=== PATIENT | female | born 1960 | race Caucasian/White ===

== ENCOUNTER 2016-12-10 10:27 | Emergency (ER) | payer OTHER ==
[2016-12-10 10:28] VITALS: BMI 21.7
[2016-12-10 10:34] VITALS: BP 115/68; PULSE 94; RESP 18; TEMP 98; O2SAT 98
--- NOTE | 2016-12-10 10:59 | C.PDOC ---
History Of Present Illness 55 y/o female presents to the ED complaining of bilateral ear pressure sensation for the past 3 days. She also states she has a history of ringing in her ears, ongoing for several years, which is not present currently. She denies fever, sore throat, cough, runny nose, or discharge from ears. Time Seen by Provider: 12/10/16 10:39 Chief Complaint (Nursing): ENT Problem History Per: Patient History/Exam Limitations: None Onset/Duration Of Symptoms: Days (x3) Current Symptoms Are (Timing): Still Present Severity: Mild Past Medical History Reviewed: Historical Data, Nursing Documentation, Vital Signs Vital Signs: Last Vital Signs Temp 98.0 F 12/10/16 10:33 Pulse 94 H 12/10/16 10:33 Resp 18 12/10/16 10:33 BP 115/68 12/10/16 10:33 Pulse Ox 98 12/10/16 11:56 - Medical History PMH: Gastritis, Hyperlipidemia Surgical History: Cholecystectomy - [facility] INJECT/INFUSE NEC (06/24/06) Family History: States: No Known Family Hx - Social History Hx Tobacco Use: No Hx Alcohol Use: No Hx Substance Use: No - Immunization History Hx Tetanus Toxoid Vaccination: No Hx Influenza Vaccination: No Hx Pneumococcal Vaccination: No Review Of Systems Except As Marked, All Systems Reviewed And Found Negative. Constitutional: Negative for: Fever, Chills ENT: Positive for: Other (Sensation of ear pressure, bilateral). Negative for: Ear Discharge, Nose Congestion, Throat Pain Cardiovascular: Negative for: Chest Pain Respiratory: Negative for: Cough, Shortness of Breath Physical Exam - Physical Exam Appears: Well, Non-toxic, No Acute Distress Skin: Normal Color, Warm, Dry, No Rash Eye(s): bilateral: Normal Inspection Ear(s): Bilateral: Other (TMs appear mildly bulging bilaterally, with clear fluid behind TM . No erythema or discharge. No swelling of ear cannal.) Nose: Normal Oral Mucosa: Moist Throat: Normal, No Erythema, No Exudate Neck: Supple Cardiovascular: Rhythm Regular Respiratory: Normal Breath Sounds, No Rales, No Rhonchi, No Wheezing Back: Normal Inspection, No Vertebral Tenderness Neurological/Psych: Oriented x3 ED Course And Treatment O2 Sat by Pulse Oximetry: 98 (RA) Pulse Ox Interpretation: Normal Progress Note: Patient given PO Sudafed 60 mg in the ED. She was gvien Rxs for sudafed and Nasonex, and instructed to follow up with ENT within 1 week. She understands she should return to ED if symptoms worsen. Disposition Counseled Patient/Family Regarding: Diagnosis, Need For Followup - Disposition Referrals: Yasmin Levin MD [Staff Provider] - Honorio Medina MD [Staff Provider] - Disposition: HOME/ ROUTINE Disposition Time: 11:00 Condition: STABLE Additional Instructions: SEGUIMIENTO CON ESPECIALISTA DE GARGANTA DE OJOS DE ODO DENTRO DE 1 SEMANA USE MEDICAMENTOS SEGN LO INDICADO REGRESE AL BERNARDO DE EMERGENCIA SI LOS SNTOMAS EMPEORAN Prescriptions: Mometasone Furoate [Nasonex] 1 spray NS DAILY #1 bottle Pseudoephedrine [Sudafed] 60 mg PO Q6 PRN #12 tab PRN Reason: Nasal Congestion Forms: [facility] (Greenlandic), General Discharge Instructions Print Language: ARMENIAN - POA Present On Arrival: None - Clinical Impression Clinical Impression: Ear pressure - Scribe Statement The provider has reviewed the documentation as recorded by the Scribe Nalini Watkins All medical record entries made by the Scribe were at my direction and personally dictated by me. I have reviewed the chart and agree that the record accurately reflects my personal performance of the history, physical exam, medical decision making, and the department course for this patient. I have also personally directed, reviewed, and agree with the discharge instructions and disposition.
== END 2016-12-10 11:18 | disposition home or self-care (01) ==
LOC: C.ER 10:27
DX: H93.8X3 Other specified disorders of ear, bilateral (principal)